=== PATIENT | female | born 1990 | race Two or more races ===

== ENCOUNTER 2024-12-17 04:31 | Emergency (ER) | payer MEDICAID ==
[~2024-12-17] VITALS: Ht 170.2 cm; Wt 92.9 kg
[2024-12-17 05:29] LABS: URINE HCG NEGATIVE (NEG)
[2024-12-17 05:40] LABS: STREP A SCREEN NEGATIVE (Neg)
--- NOTE | 2024-12-17 06:30 | Physician Documentation ---
History of Present Illness ~ Chief Complaint: Sore Throat Stated Complaint: THROAT PAIN Time Seen by MD: 06:29 HPI 34-year-old female presenting with a sore throat She tells me that she had in evening of heavy drinking 3 days ago. When she woke up in the morning she felt more hung over than normal. Over the past 2 days she has then had a gradually worsening sore throat. She states that it is painful to swallow. She feels like she has some swelling in her anterior neck. No fevers, chills, nausea, vomiting, difficulty breathing, or other. She is still eating and drinking. She has not tried any specific treatments or medications for this. No history of strep throat Medication Reconciliation Allergies: Coded Allergies: No Known Allergies (Unverified , 12/17/24) Review of Systems Constitutional: Denies: fever ENT: Reports: throat pain Gastrointestinal: Denies: vomiting Physical Exam Vital Signs: Temperature: 98.9, Source: Oral, Heart Rate: 76, Respiratory Rate: 17, BP: 137/88, Pulse Oximetry: 98, Weight: 92.910 Oxygen Flow Rate: 0 Physical Exam General: This is a pleasant and nontoxic appearing young female HEENT: Atraumatic, oropharynx is moist. Minimal posterior oropharyngeal erythema, no unilateral swelling, beefy red erythema, or white exudate. No difficulty swallowing secretions. Neck: No significant swelling, no stridor. Small tender lymph node in the anterior chain Heart: Regular rate and rhythm, normal-appearing peripheral perfusion Lungs: normal work of breathing, normal oxygen saturation on room air Neuro: Alert and oriented Psychiatric: Calm and cooperative with exam Progress Results/Orders Results/Orders Medications Received in ER Medications (Trade) Dose Ordered Sig/Chris Route PRN Reason Start Time Stop Time Status Last Admin Dose Admin (Toradol injection) 15 mg ONCE ONCE IM 12/17/24 05:45 12/17/24 05:48 DC 12/17/24 06:32 15 MG Vital Signs 12/17/24 12/17/24 04:41 06:32 Temp 98.9 Pulse 76 Resp 17 18 B/P (MAP) 137/88 Pulse Ox 98 O2 Flow Rate 0 Laboratory Tests Test 12/17/24 04:51 Urine HCG, Qualitative Negative Group A Streptococcus Rapid Negative Medical Decision Making Additional information obtaine: N/A Findings Not applicable Ear Diff. Dx: Considerations: Unlikely: Abrasion, Cerumen impaction, Foreign body, Otitis externa, Barotrauma, Otitis media, Perforation, Referred pain- dental, Referred pain-pharyngitis, Referred pain-sinusitis, Referred pain-TMJ syn., Tympanic Membrane Injury, Other Eye Diff. Dx: Considerations: Unlikely: Chalaz[place], Conjuctivits-allergic, Conjuctivitis-bacterial, Conjuctivits-chlamydial, Conjuctivitis-viral, Corneal abrasion, Corneal laceration, Corneal ulceration, Foreign body-conjuctiva, Foreign body-corneal, Foreign body-intraocular, Foreign body-lid, Glaucoma, Globe rupture, Hordeolum, Iritis, Orbital cellulitis, Periobital cellulitis, Retinal artery occulsion, Retinal vein occlusion, Rust ring, Subconjunctival hem, Ultraviolet keratitis, Uveitis, Vitreous hemorrhage, Other Nose Diff. Dx: Considerations: Unlikely: Abrasion, Anterior nasal bleed, Avulsion, Contusion, Coagulopathy, Fracture-nasal bone, Fracture-septum, Hypertension, Laceration, Other, Posterior nasal bleed, Retained foreign body, Septal hematoma Tooth Diff. Dx: Considerations: Unlikely: Alveolar fracture, Aveolar osteitis, ANUG, Facial cellulitis, Periapical abscess, Periodontal abscess, Post- extraction bleeding, Pulpitis, Trigeminal neuralgia, Tooth-avulsion, Tooth- eruption, Tooth-fracture, Tooth-subluxation, Other Throat Diff Dx: Considerations: Include: Epiglottitis, Infection mononucleosis, Peritonsillar abscess, Peritonsillar cellulitis, Pharyngitis-strepococcal, Pharyngitis-viral Additional Comment The patient presents with a sore throat. On exam she has minimal posterior oropharyngeal erythema but no evidence to suggest strep throat, peritonsillar abscess, or cellulitis. No stridor. Strep swab was negative. She is not . She was given Toradol. I had a shared decision-making conversation with her regarding antibiotics, after which she was in agreement with no antibiotics and symptomatic treatment. Return precautions given if she does develop signs of a superimposed bacterial infection. I suspect this is a viral pharyngitis. Departure Time of Disposition: 06:50 Disposition: 01 HOME / SELF CARE / HOMELESS Impression: Primary Impression: Acute pharyngitis Condition: Stable Discharge Instructions: Pharyngitis Referrals: NO PRIMARY CARE PROVIDER (PCP) Education Educated: Patient Educated regarding: diagnosis, treatment Signature Scribe Signature: na Attestation: CALEB Gleason MD Dec 17, 2024 06:30
[2024-12-17] MEDS: ketorolac trometh 15mg/ml vial 15 MG/ML ML IM ONE (06:32)
[2024-12-17 07:04] VITALS: BP 136/98; PULSE 68; RESP 18; TEMP 98.9; O2SAT 99
== END 2024-12-17 07:11 | disposition home or self-care (01) ==
LOC: ER 04:32
DX: J02.9 Acute pharyngitis, unspecified (principal)
CPT/HCPCS: 81025; 87081; 87880; 96372; 99283; J1885